=== PATIENT | male | born 1950 | race Caucasian/White ===

== ENCOUNTER 2019-11-21 17:51 | Inpatient (IN) | payer MEDICARE ==
[2019-11-21 18:31] LABS: ABS Eosinophils 0.1 10^3/ul (0-0.6); ABS Lymphocytes 1.2 10^3/ul (1.0-4.8); ABS Monocytes 0.9 10^3/ul (0-0.8); ABS Neutrophils 3.3 10^3/ul (1.5-7.7); Eosinophil % 1.7 %; Hematocrit 37 % (42-52); Hemoglobin 12.6 g/dL (14.0-18.0); Lymphocyte % 21.3 %; Mean Corpuscular HGB Conc 34 g/dL (31-36); Mean Corpuscular Hemoglobin 33 pg (27-31); Mean Corpuscular Volume 95 fL (80-94); Mean Platelet Volume 10.6 fL (7.4-10.4); Platelet Count 113 10^3/uL (150-450); Red Blood Count 3.86 10^6 /uL (4.18-5.48); Red Cell Distribution Width 14 % (10-15); White Blood Count 5.5 10^3/uL (3.5-10.8)
[2019-11-21 18:40] LABS: INR 1.14 (0.82-1.09)
[2019-11-21 18:47] LABS: ALT 47 U/L (7-52); AST 46 U/L (13-39); Albumin 4.3 g/dL (3.2-5.2); Albumin/Globulin Ratio 1.5 (1-3); Alkaline Phosphatase 59 U/L (34-104); Anion Gap 9 mmol/L (2-11); BUN/Creatinine Ratio 28.1 (8-20); Blood Urea Nitrogen 59 mg/dL (6-24); CO2 Carbon Dioxide 27 mmol/L (22-32); Chloride 100 mmol/L (101-111); EGFR African American 37.9 (>60); EGFR Non-African American 31.3 (>60); Globulin 2.9 g/dL (2-4); Glucose 142 mg/dL (70-100); Potassium 3.7 mmol/L (3.5-5.0); Sodium 136 mmol/L (135-145); Total Protein 7.2 g/dL (6.4-8.9)
[2019-11-21 18:49] LABS: Troponin I 0.01 ng/mL (<0.03)
[2019-11-21 19:52] LABS: Alcohol < 10 mg/dL (<10)
[2019-11-21 20:08] LABS: TSH (Thyroid Stimulating Horm) 2.95 mcIU/mL (0.34-5.60)
[2019-11-21 20:19] LABS: Folate 12.41 ng/mL (>3.99)
--- NOTE | 2019-11-22 01:05 | ED ---
Neurological HPI - HPI Summary HPI Summary: Patient is a 69 year-old male presenting to [facility] accompanied by friend with a chief complaint of memory issues since 11/16/2019. He reports that when he woke up six days ago, he was unable to remember mostly short-term events or items. He notes that a few days before the memory issues began, he was having difficulty with handwriting. He also has noticed himself to be hyperverbal compared to his usual. His friend reports patient having sleep disturbance and mixing up words for only a week. He saw Dr. Hammond, his PCP, on 11/21/2019, and he asked the patient to remember three words and do simple math problems, but he was only able to remember two words and couldnt solve the math. Dr. Hammond recommended the patient come here for possible metabolic encephalopathy. Past medical history significant for diabetes with neuropathy, hypercholesterolemia, hypertension, PVD, syncope, BPH, prostate cancer, fibromyalgia, colon cancer. Family history includes dementia in father, diabetes, cardiac disease. Nonsmoker , daily alcohol use, no substance use. Medications reviewed. Allergies noted. Additional friend shows up and states that the patient hasnt eaten, drank, or slept in five days. Patient is a heavy drinker but hasnt had any alcohol in two days. - History of Current Complaint Chief Complaint: EDNeurologicalDeficit Stated Complaint: CONFUSED PER PT Time Seen by Provider: 11/22/19 00:32 Hx Obtained From: Patient, Family/Instrument Panel Assembler - friends Onset/Duration: Started days ago, Still Present Onset Severity: Mild Current Severity: Moderate Pain Intensity: 0 Pain Scale Used: 0-10 Numeric Character: Confusion Aggravating: Unknown Alleviating: Nothing Associated Signs and Symptoms: Positive: Memory Loss - Allergy/Home Medications Allergies/Adverse Reactions: Allergies Allergy/AdvReac Type Severity Reaction Status Date / Time No Known Allergies Allergy Verified 11/21/19 17:57 Home Medications: Home Medications Tamsulosin CAP* [Flomax CAP*] 0.4 mg PO BEDTIME 02/12/13 [History Confirmed 09/28] metFORMIN* [Glucophage*] 850 mg PO BID 02/12/13 [History Confirmed 03/10/19] Insulin Glargine,Hum.rec.anlog [Lantus] 40 units SUBCUT QAM 11/19/15 [History Confirmed 03/10/19] Atenolol TAB* [Tenormin TAB* 50 MG] 75 mg PO QAM 02/19/19 [History Confirmed 09/28] Dulaglutide [Trulicity] 1.5 mg SQ WEEKLY 02/19/19 [History Confirmed 03/10/19] Amlodipine Besylate [Norvasc] 10 mg PO QAM 03/10/19 [History Confirmed 03/10/19] Aspirin [Aspirin Childrens 81 MG] 81 mg PO QAM 03/10/19 [History Confirmed 03/10] Atorvastatin* [Lipitor*] 20 mg PO QPM 03/10/19 [History Confirmed 03/10/19] Cholecalciferol (Vitamin D3) [Vitamin D3] 1,000 unit PO QPM 03/10/19 [History Confirmed 03/10/19] Cyanocobalamin (Vitamin B-12) [Vitamin B-12] 1,000 mcg SL QPM 03/10/19 [History Confirmed 03/10/19] Losartan/Hydrochlorothiazide [Losartan Potassium/Hydroc 100-12.5 mg] 1 tab PO QAM 03/10/19 [History Confirmed 03/10/19] PMH/Surg Hx/FS Hx/Imm Hx Endocrine/Hematology History: Reports: Hx Diabetes Denies: Hx Thyroid Disease Cardiovascular History: Reports: Hx Hypercholesterolemia - HLD, Hx Hypertension , Hx Peripheral Vascular Disease, Hx Syncope - LAST ADMISSION 2012, Other Cardiovascular Problems/Disorders - Hx HTN Denies: Hx Pacemaker/ICD Respiratory History: Denies: Hx Chronic Obstructive Pulmonary Disease (COPD) GI History: Reports: Hx Gastroesophageal Reflux Disease, Other GI Disorders - COLON CANCER 2005 History: Reports: Hx Benign Prostatic Hyperplasia, Other Problems/ Disorders - Prostate CA 2005, radiation Denies: Hx Renal Disease Musculoskeletal History: Reports: Hx Fibromyalgia - LEGS Sensory History: Reports: Hx Contacts or Glasses Denies: Hx Hearing Aid Opthamlomology History: Reports: Hx Contacts or Glasses Neurological History: Reports: Other Neuro Impairments/Disorders - DIABETIC NEUROPATHY IN FEET Psychiatric History: Reports: Hx Depression Denies: Hx Panic Disorder - Cancer History Cancer Type, Location and Year: colon 1999. prostate 2005 Hx Chemotherapy: No Hx Radiation Therapy: Yes Hx Palliative Cancer Treatment: Yes - PARTIAL COLECTOMY - Surgical History Surgical History: Yes Surgery Procedure, Year, and Place: PARTIAL COLECTOMY 03/2000. RIGHT 1ST TOE AMPUTATION 02/2013. right second toe amputation 2013 Infectious Disease History: Yes Infectious Disease History: Denies: Hx Hepatitis, Traveled Outside the [place] in Last 30 Days - Family History Known Family History: Positive: Cardiac Disease, Diabetes, Other - dementia - Social History Alcohol Use: Daily Alcohol Amount: beer Hx Substance Use: No Substance Use Type: Reports: None Hx Tobacco Use: No Smoking Status (MU): Never Smoked Tobacco Have You Smoked in the Last Year: No - Additional Comments History Additional Comments: diabetes with neuropathy, hypercholesterolemia, hypertension, PVD, syncope, BPH , prostate cancer, fibromyalgia, colon cancer Review of Systems - ROS Summary Review of Systems Summary: Home Medications Medication Instructions Recorded Confirmed Type Tamsulosin CAP* [Flomax CAP*] 0.4 mg PO BEDTIME 02/12/13 03/10/19 History metFORMIN* [Glucophage*] 850 mg PO BID 02/12/13 03/10/19 History Insulin Glargine,Hum.rec.anlog 40 units SUBCUT QAM 11/19/15 03/10/19 History [Lantus] Atenolol TAB* [Tenormin TAB* 50 MG] 75 mg PO QAM 02/19/19 03/10/19 History Dulaglutide [Trulicity] 1.5 mg SQ WEEKLY 02/19/19 03/10/19 History Amlodipine Besylate [Norvasc] 10 mg PO QAM 03/10/19 03/10/19 History Aspirin [Aspirin Childrens 81 MG] 81 mg PO QAM 03/10/19 03/10/19 History Atorvastatin* [Lipitor*] 20 mg PO QPM 03/10/19 03/10/19 History Cholecalciferol (Vitamin D3) 1,000 unit PO QPM 03/10/19 03/10/19 History [Vitamin D3] Cyanocobalamin (Vitamin B-12) 1,000 mcg SL QPM 03/10/19 03/10/19 History [Vitamin B-12] Losartan/Hydrochlorothiazide 1 tab PO QAM 03/10/19 03/10/19 History [Losartan Potassium/Hydroc 100-12.5 mg] Positive: Other - sleep disturbance, hyperverbal Positive: Other - decreased oral intake Neurological/Mental Status: Other - memory issues, mixing up words All Other Systems Reviewed And Are Negative: Yes Physical Exam - Summary Physical Exam Summary: General: Well-developed, Well-nourished elderly male. No acute distress. HEENT: Normocephalic, Atraumatic. Eyes: Conjuctiva normal, PERRL. Oropharynx: Clear, mucous membranes moist, (-) exudates. Neck: Soft, FROM, (-) lymphadenopathy, (-) thyromegaly, (-) JVD. Cardiovascular: Normal sinus rhythm, (-) murmur. Lungs: Clear to auscultation bilaterally (-) wheezes, (-) rales, (-) rhonchi. Abdomen: Soft, non-tender, non-distended, (-) organomegaly, normal bowel sounds. Back: (-) CVA tenderness Extremities: No edema. Skin: Warm, dry, (-) rash. Neuro: Alert and oriented x3, moves all extremities equally. No ataxia. No gait disturbance. No sensory deficit. Normal strength, normal sensation. Psychiatric: Pressured speech, flight of ideas, difficultly with mental status. GCS: 14 (see scale). Triage Information Reviewed: Yes Vital Signs On Initial Exam: Initial Vitals Temp Pulse Resp BP Pulse Ox 96.8 F 74 16 120/76 98 11/21/19 17:53 11/21/19 17:53 11/21/19 17:53 11/21/19 17:53 11/21/19 17:53 Vital Signs Reviewed: Yes - Edwards Coma Scale Best Eye Response: 4 - Spontaneous Best Motor Response: 6 - Obeys Commands Best Verbal Response: 4 - Confused Coma Scale Total: 14 Procedures - Sedation Patient Received Moderate/Deep Sedation with Procedure: No Diagnostics - Vital Signs Vital Signs Temp Pulse Resp BP Pulse Ox 11/22/19 00:15 69 155/74 98 11/22/19 00:14 74 96 11/21/19 20:39 97.9 F 59 18 108/58 98 11/21/19 17:53 96.8 F 74 16 120/76 98 - Laboratory Lab Results: Lab Results 11/21/19 11/21/19 11/21/19 Range/Units 18:18 18:18 18:18 WBC 5.5 (3.5-10.8) 10^3/uL RBC 3.86 L (4.18-5.48) 10^6 /uL Hgb 12.6 L (14.0-18.0) g/dL Hct 37 L (42-52) % MCV 95 H (80-94) fL MCH 33 H (27-31) pg MCHC 34 (31-36) g/dL RDW 14 (10-15) % Plt Count 113 L (150-450) 10^3/uL MPV 10.6 H (7.4-10.4) fL Neut % (Auto) 59.7 % Lymph % (Auto) 21.3 % [place] % (Auto) 16.5 % Eos % (Auto) 1.7 % Baso % (Auto) 0.8 % Absolute Neuts (auto) 3.3 (1.5-7.7) 10^3/ul Absolute Lymphs (auto) 1.2 (1.0-4.8) 10^3/ul Absolute Monos (auto) 0.9 H (0-0.8) 10^3/ul Absolute Eos (auto) 0.1 (0-0.6) 10^3/ul Absolute Basos (auto) 0.0 (0-0.2) 10^3/ul Absolute Nucleated RBC 0.0 10^3/ul Nucleated RBC % 0.0 INR (Anticoag Therapy) 1.14 H (0.82-1.09) Sodium 136 (135-145) mmol/L Potassium 3.7 (3.5-5.0) mmol/L Chloride 100 L (101-111) mmol/L Carbon Dioxide 27 (22-32) mmol/L Anion Gap 9 (2-11) mmol/L BUN 59 H (6-24) mg/dL Creatinine 2.10 H (0.67-1.17) mg/dL Est GFR ( Amer) 37.9 (>60) Est GFR (Non-Af Amer) 31.3 (>60) BUN/Creatinine Ratio 28.1 H (8-20) Glucose 142 H (70-100) mg/dL Lactic Acid (0.5-2.0) mmol/L Calcium 10.0 (8.6-10.3) mg/dL Total Bilirubin 0.90 (0.2-1.0) mg/dL AST 46 H (13-39) U/L ALT 47 (7-52) U/L Alkaline Phosphatase 59 (34-104) U/L Ammonia (16-53) mcmol/L Troponin I 0.01 (<0.03) ng/mL Total Protein 7.2 (6.4-8.9) g/dL Albumin 4.3 (3.2-5.2) g/dL Globulin 2.9 (2-4) g/dL Albumin/Globulin Ratio 1.5 (1-3) Vitamin B12 > 1450 H (180-914) pg/mL Folate 12.41 (>3.99) ng/mL TSH 2.95 (0.34-5.60) mcIU/mL Serum Alcohol < 10 (<10) mg/dL 11/21/19 11/21/19 Range/Units 18:18 18:18 WBC (3.5-10.8) 10^3/uL RBC (4.18-5.48) 10^6 /uL Hgb (14.0-18.0) g/dL Hct (42-52) % MCV (80-94) fL MCH (27-31) pg MCHC (31-36) g/dL RDW (10-15) % Plt Count (150-450) 10^3/uL MPV (7.4-10.4) fL Neut % (Auto) % Lymph % (Auto) % [place] % (Auto) % Eos % (Auto) % Baso % (Auto) % Absolute Neuts (auto) (1.5-7.7) 10^3/ul Absolute Lymphs (auto) (1.0-4.8) 10^3/ul Absolute Monos (auto) (0-0.8) 10^3/ul Absolute Eos (auto) (0-0.6) 10^3/ul Absolute Basos (auto) (0-0.2) 10^3/ul Absolute Nucleated RBC 10^3/ul Nucleated RBC % INR (Anticoag Therapy) (0.82-1.09) Sodium (135-145) mmol/L Potassium (3.5-5.0) mmol/L Chloride (101-111) mmol/L Carbon Dioxide (22-32) mmol/L Anion Gap (2-11) mmol/L BUN (6-24) mg/dL Creatinine (0.67-1.17) mg/dL Est GFR ( Amer) (>60) Est GFR (Non-Af Amer) (>60) BUN/Creatinine Ratio (8-20) Glucose (70-100) mg/dL Lactic Acid 1.6 (0.5-2.0) mmol/L Calcium (8.6-10.3) mg/dL Total Bilirubin (0.2-1.0) mg/dL AST (13-39) U/L ALT (7-52) U/L Alkaline Phosphatase (34-104) U/L Ammonia 34 (16-53) mcmol/L Troponin I (<0.03) ng/mL Total Protein (6.4-8.9) g/dL Albumin (3.2-5.2) g/dL Globulin (2-4) g/dL Albumin/Globulin Ratio (1-3) Vitamin B12 (180-914) pg/mL Folate (>3.99) ng/mL TSH (0.34-5.60) mcIU/mL Serum Alcohol (<10) mg/dL Result Diagrams: 11/21/19 18:18 11/21/19 18:18 Lab Statement: Any lab studies that have been ordered have been reviewed, and results considered in the medical decision making process. - CT Brain CT CT Interpretation Completed By: Radiologist Summary of CT Findings: Impression: No acute intracranial abnormality. No interval change. This report was reviewed by Dr. Agee. - EKG 181 Cardiac Rate: NL - 65 BPM EKG Rhythm: Sinus Rhythm Summary of EKG Findings: EKG at 1813 reveals normal sinus rhythm with rate of 65 BPM, no acute changes, no ischemic changes. This EKG was reviewed and interpreted by Dr. Agee. Course/Dx - Course Course Of Treatment: 69-year-old male presents from PCP office for evaluation. Patient states he has been confused since Sunday. Mixing up his words. Problems with memory. Was taken to his PCP office today by his friend. His friend states that he hasn't eaten or drank or slept in 5 days. Has been very confused with poor memory. Also talking rapidly and much more than normal. Friend also states that he drinks heavily every day. Has not had any alcohol in 2 days. At PCPs office today patient had trouble with Mini-Mental exam. Was unable to do serial 7 subtraction. Unable to remember 3 words. Even confused with some questions. Patient has no significant findings on physical exam. On workup he has slightly elevated creatinine. Patient unable to urinate. Bladder scan demonstrated over 900 cc in the bladder. Straight catheter was done for urine sample which demonstrated significant urinary tract infection. Started on Rocephin and IV fluids. Referred to hospitalist for admission for urinary tract infection, elevated creatinine, metabolic encephalopathy. Patient received fluids and Ceftriaxone in the ED course. - Diagnoses Provider Diagnoses: UTI (urinary tract infection), Urinary retention, Renal insufficiency, Metabolic encephalopathy - Physician Notifications Discussed Care Of Patient With: Junior Conner - hospitalist Time Discussed With Above Provider: 03:15 Instructed by Provider To: Other - I discussed the patients case with Dr. Conner, who accepts the patient for admission. Discharge ED - Sign-Out/Discharge Documenting (check all that apply): Patient Departure - Patient accepted for admission by Dr. Conner. - Discharge Plan Condition: Stable Disposition: ADMITTED TO [facility] Referrals: Gini Hanson DO [Primary Care Provider] - - Billing Disposition and Condition Condition: STABLE Disposition: Admitted to [facility] - Attestation Statements Document Initiated by Huntere: Yes Documenting Scribe: Kandace Degroot Provider For Whom Bayleeibharrison is Documenting (Include Credential): Marybeth Agee MD Scribe Attestation: IKandace, scribed for Marybeth Agee MD on 11/22/19 at 0507. Scribe Documentation Reviewed: Yes Provider Attestation: The documentation as recorded by the Kandace morocho accurately reflects the service I personally performed and the decisions made by me, Marybeth Agee MD Status of Scribe Document: Viewed
[2019-11-22 02:09] LABS: Urine Appearance Cloudy; Urine Bilirubin Negative (Negative); Urine Blood 1+ (Negative); Urine Color Yellow; Urine Glucose Negative (Negative); Urine Ketones Negative (Negative); Urine Nitrite Negative (Negative); Urine Protein Negative (Negative); Urine Specific Gravity 1.015 (1.010-1.030); Urine Urobilinogen Negative (Negative)
[2019-11-22 02:12] LABS: Urine Bacteria 1+ (Absent); Urine Red Blood Cell 1+(3-5/hpf) (Absent); Urine Squamous Epithelial Cell Present (Absent); Urine White Blood Cell 2+(11-20/hpf) (Absent)
[2019-11-22 02:25] LABS: Urine Benzodiazepine Screen None Detected (None Detect); Urine Opiates Screen None Detected (None Detect)
[2019-11-22] MEDS ORDERED: cefTRIAXone(*) 2 GM in NS 0.9% 100 ML* 100 ML IVPB ONE (03:13)
[2019-11-22] MEDS ORDERED: NS 0.9% 1000 ML** 1,000 ML IV ONE (03:19)
[2019-11-22] MEDS ORDERED: Acetaminophen TAB* 325 MG PO PRN (05:24)
[2019-11-22] MEDS ORDERED: Al Hydrox/Mg Hydrox/Simet LIQ* 30 ML UDC PO PRN (05:24)
[2019-11-22] MEDS ORDERED: Ondansetron INJ* 2 MG/ML VIAL IV PRN (05:24)
[2019-11-22] MEDS ORDERED: Dextrose 50% Syringe 50 ML* 25 GM/50 ML SYRINGE IV PUSH PRN (05:37)
[2019-11-22 06:52] LABS: ABS Eosinophils 0.1 10^3/ul (0-0.6); ABS Monocytes 0.5 10^3/ul (0-0.8); ABS Neutrophils 2.3 10^3/ul (1.5-7.7); Eosinophil % 1.8 %; Hematocrit 34 % (42-52); Hemoglobin 11.9 g/dL (14.0-18.0); Lymphocyte % 25.1 %; Mean Corpuscular HGB Conc 35 g/dL (31-36); Mean Corpuscular Hemoglobin 33 pg (27-31); Mean Corpuscular Volume 94 fL (80-94); Mean Platelet Volume 10.9 fL (7.4-10.4); Platelet Count 93 10^3/uL (150-450); Red Blood Count 3.59 10^6 /uL (4.18-5.48); Red Cell Distribution Width 14 % (10-15); White Blood Count 3.9 10^3/uL (3.5-10.8)
[2019-11-22 07:04] LABS: Calcium 9.5 mg/dL (8.6-10.3); EGFR African American 53.4 (>60); EGFR Non-African American 44.1 (>60); Magnesium 1.9 mg/dL (1.9-2.7); Potassium 3.4 mmol/L (3.5-5.0)
[2019-11-22] MEDS ORDERED: Losartan TAB* 25 MG PO SCH (09:00)
[2019-11-22] MEDS ORDERED: Hydrochlorothiazide TAB* 25 MG PO SCH (09:00)
--- NOTE | 2019-11-22 09:43 | PN ---
Subjective Date of Service: 11/22/19 Interval History: Mr. Blount reports that he is feeling better today. He feels that he has less brain fog and notes that he is better at texting (this had been a problem earlier this week). He confirms a history of prostate cancer. He confirms that he sometimes has trouble urinating but feels that it is more psychological than a result of an obstruction. He has urinated since admission. Post void residual is pending. He denies other complaint including chest pain, SOB, nausea, or abdominal pain. Objective Active Medications: Acetaminophen (Tylenol Tab*) 650 mg PO Q4H PRN Al Hydrox/Mg Hydrox/Simethicone (Maalox Plus*) 30 ml PO Q6H PRN Amlodipine Besylate (Norvasc Tab*) 10 mg PO QAM DARIANA Aspirin (Aspirin 81 Mg Chew Tab*) 81 mg PO QAM DARIANA Atenolol (Tenormin Tab*) 75 mg PO QAM DAR[facility]NA Atorvastatin Calcium (Lipitor*) 20 mg PO QPM DARIANA Cholecalciferol (Vitamin D Tab*) 1,000 units PO QPM DARIANA Dextrose (D50w Syringe 50 Ml*) 12.5 gm IV PUSH .FOR FS < 60 - SS PRN Docusate Sodium (Colace Cap*) 100 mg PO BID DARIANA Hydrochlorothiazide (Hydrodiuril Tab*) 12.5 mg PO DAILY DARIANA Ceftriaxone Sodium 1 gm/ (Sodium Chloride) 50 mls @ 100 mls/hr IVPB Q24H DARIANA Insulin Glargine (Lantus(*)) 30 units SUBCUT Q24H DARIANA Insulin Human Lispro (Humalog*) 0 units SUBCUT ACHS DARIANA; Protocol Losartan Potassium (Cozaar Tab*) 100 mg PO QAM [facility] Non-Formulary Medication (Cyanocobalamin (Vitamin B-12) [Vitamin B-12]) 1,000 mcg SL QPM DARIANA Ondansetron HCl (Zofran Inj*) 4 mg IV Q4H PRN Tamsulosin HCl (Flomax Cap*) 0.4 mg PO BEDTIME DARIANA Vital Signs: Temp Pulse Resp BP Pulse Ox 97.9 F 75 16 123/59 96 11/22/19 07:00 11/22/19 07:00 11/22/19 07:00 11/22/19 07:00 11/22/19 07:00 Oxygen Devices in Use Now: None Appearance: Male sitting up in chair in NAD Eyes: No Scleral Icterus Ears/Nose/Mouth/Throat: Mucous Membranes Moist Neck: NL Appearance and Movements; NL JVP Respiratory: Symmetrical Chest Expansion and Respiratory Effort, Clear to Auscultation Cardiovascular: NL Sounds; No Murmurs; No JVD, No Edema Abdominal: NL Sounds; No Tenderness; No Distention Extremities: No Edema Skin: No Rash or Ulcers Neurological: Alert and Oriented x 3, NL Muscle Strength and Tone Nutrition: Taking PO's Result Diagrams: 11/22/19 06:40 11/22/19 06:40 Additional Lab and Data: . Microbiology and Other Data: . Assess/Plan/Problems-Billing Assessment: Ms. Blount is a 69 yo M with a PMH of hypertension, diabetes, hyperlipidemia who was admitted on with increasing short term memory loss and loss of appetite , found to have urinary retention and SHAAN. - Patient Problems (1) SHAAN (acute kidney injury) Comment: - Found to have urinary retention on arrival, hx of prostate cancer - Post void residual pending, ? if needs fulton - Creatinine improving - Continue hydration, renal US pending - Continue ceftriaxone for mow (2) Hypertension Comment: - SBP 120s - Continue amlodipine, atenolol - Hold losartan and hctz given SHAAN (3) Diabetes Comment: - BG well controlled - Continue lantus and lispro (4) Hyperlipemia Comment: - Continue atorvastatin (5) DVT prophylaxis Comment: - Heparin SQ (6) Full code status Comment: Status and Disposition: Inpatient, anticipate discharge to home when medically stable, lives alone.
[2019-11-22] MEDS: Insulin LISPRO* 1 UNITS UNIT SUBCUT SCH ×4 (10:06→21:56)
[2019-11-22] MEDS: Docusate CAP* 100 MG PO SCH ×2 (10:16→21:30)
[2019-11-22] MEDS: Atenolol TAB* 25 MG PO SCH (10:16)
[2019-11-22] MEDS: amLODIPine TAB* 5 MG PO SCH (10:16)
[2019-11-22] MEDS: Aspirin 81 mg CHEW TAB* 81 MG TAB.CHEW PO SCH (10:16)
[2019-11-22] MEDS: Insulin GLARGINE(*) 1 UNITS UNIT SUBCUT SCH (10:16)
--- NOTE | 2019-11-22 11:57 | HP ---
HISTORY AND PHYSICAL: DATE OF ADMISSION: 11/22/19 HISTORY OF PRESENT ILLNESS: This is a 69-year-old male with past medical history significant for diabetes, hypertension, hyperlipidemia, who presented to the ED accompanied by a neighbor with chief complaint of memory issues and wanders a lot. The patient stated that he was well until 6 days ago when he woke up and was unable to remember mostly short-term events or items. He stated that a few days before the memory issues began, he has been having difficulty with handwriting. He also was noticed to be wordy compared to his usual state. The neighbor reports the patient has been having sleep disturbances and mixing up words and this he said he noticed only for 1 week. The patient went to his PCP Dr. Hammond on 11/18/19 and he asked the patient to remember 3 things but he was only able to remember 2, and solving simple math issues was also problematic. His PCP recommended he come to the ED for further evaluation, probably of metabolic in nature, so the patient states he came in to be evaluated for metabolic encephalopathy. He denied fever, nausea, vomiting , chest pain, shortness of breath. PAST MEDICAL HISTORY: Diabetes mellitus with use of insulin, diabetic neuropathy bilateral lower extremities, hypercholesterolemia, hypertension, peripheral vascular disease, BPH, history of prostate cancer, fibromyalgia, colon cancer. PAST SURGICAL HISTORY: Appendectomy, right foot amputation. The patient is a retired collections officer. He is . MEDICATIONS: 1. Flomax 0.4 mg at bedtime. 2. Metformin 850 mg p.o. b.i.d. 3. Insulin glargine 40 units subcu in the morning on record, but the patient states he takes 30 units subcu now. 4. Atenolol 75 mg p.o. q.a.m. 5. Trulicity 1.5 mg subcu weekly. 6. Amlodipine 10 mg p.o. q.a.m. 7. Baby aspirin 81 mg p.o. daily. 8. Atorvastatin 20 mg p.o. q.p.m. 9. Vitamin D3 1000 units p.o. q.p.m. 10. Vitamin B12 1000 mcg sublingual q.p.m. 11. Losartan hydrochlorothiazide 100/12.5 mg 1 tablet p.o. q.a.m. ALLERGIES: No known drug allergies. FAMILY HISTORY: Includes dementia in the father, diabetes mellitus as well in the father. Grandparents both were diabetic. SOCIAL HISTORY: The patient is a nonsmoker, daily alcohol use about 6 packs of beer daily. Denied use of illicit drugs. REVIEW OF SYSTEMS: Positive sleep disturbance, hyperverbal, decreased oral intake. All other systems reviewed were negative. PHYSICAL EXAMINATION GENERAL: Well-developed, well-nourished elderly male, in no acute distress, wanders a lot. VITAL SIGNS: Temperature 98.8, pulse 74, respiratory rate 16, BP 120/76, pulse oximetry 98%. HEENT: Normocephalic, atraumatic. Eyes: Conjunctivae normal. PERRL. Oropharynx clear. Mucous membrane moist. No exudate. NECK: Supple. Full range of motion. No lymphadenopathy. No thyromegaly. No JVD. LUNGS: Clear to auscultation bilaterally. No wheezing. No rales. No rhonchi. Good air entry. CARDIOVASCULAR: Regular rate and rhythm. S1 and S2 heard. No murmurs. ABDOMEN: Soft. Nontender, nondistended. No organomegaly. Normal bowel sounds heard in all 4 quadrants. No palpable mass. BACK: No CVA tenderness. EXTREMITIES: Trace edema. No cyanosis. Moves all 4 extremities. NEUROLOGIC: Alert and oriented x3. Moves all extremities equally. No ataxia. No gait disturbance noticed. No sensory deficit. Normal strength, normal sensation in the upper extremities. Lower extremities, mild sensory loss bilateral lower extremities secondary to neuropathy. SKIN: Warm, dry. No rashes. PSYCHIATRIC: Pressured speech. Flight of ideas. Difficulty with mental status. Tangential speech. DIAGNOSTIC STUDIES/LAB DATA: Hematologic: WBC 5.5, RBC 3.86, hemoglobin 12.6 , hematocrit 37, MCV 95, MCH 93, MCHC 34, RDW 14, platelet count 113, MPV 10.6, neutrophils 59.7, INR 1.14. Chemistry: Sodium 136, potassium 3.7, chloride 100 , bicarbonate 27, anion gap 9, BUN 59, creatinine 2.10, estimated GFR non- 31.3, glucose 142, calcium 10.0, total bilirubin 0.9, AST 46, ALT 47, alkaline phosphatase 59, troponin 0.01, total protein 7.2, albumin 4.3, globulin 2.9, vitamin B12 greater than 1450, folate 12.41, TSH 2.95, serum alcohol less than 10, lactic acid 1.6, ammonia 34. CT brain: No acute intracranial abnormality, no interval change. EKG showed normal sinus rhythm. ASSESSMENT AND PLAN: A 69-year-old male who presented to the ED accompanied by a neighbor with chief complaint of memory issues for the past 1 week, insomnia and poor oral intake. The patient sent in by PCP for evaluation for metabolic encephalopathy. The patient will be admitted to the medical floor inpatient. For the metabolic encephalopathy, reviewed medication for any medication that could cause toxic encephalopathic. The patient received 1 L of fluid, normal saline, in the ED. We will monitor. For diabetes mellitus, we will continue insulin glargine with sliding scale. Metformin will be held for now due to elevated creatinine, diabetic diet. Vitamin B12 level noted to be more than adequate. For hypertension, the patient to continue with atenolol and Norvasc with holding parameters as well as losartan and hydrochlorothiazide. Monitor blood pressure. For benign prostatic hyperplasia, the patient to continue with Flomax. For hyperlipidemia, the patient to continue with Lipitor. I think there is a combination of dementia. The patient has a family history of dementia as well. I will consider adding donepezil to his regimen. CT scan noted to be negative of any intracranial pathology. Diet: Diabetic diet. Code status: Full code. DVT prophylaxis: Heparin subcu. For acute kidney injury, avoid nephrotoxic drugs. Renal scan ordered. The patient encouraged to improve oral intake. The patient received a liter of normal saline in the ED, monitor renal function. If he does not improve with p.o. hydration, we will consider to continue IV hydration and withholding hydrochlorothiazide. We will follow up. The patient was admitted for urinary tract infection, which might also contribute to the behavioral issues noted a week ago. I will continue with ceftriaxone - Rocephin 1 g IV daily for 5 doses. Follow up urine culture and sensitivity. Fluids and electrolytes will be repeated as needed. TIME SPENT: Time spent on this admission was 60 minutes. [id number]/CPS #: [id number] JOSE MARIA
[2019-11-22] MEDS: Heparin VIAL(*) 5000 UNITS/ML VIAL (FIVE THOUSAND) SUBCUT SCH ×2 (13:07→21:29)
[2019-11-22] MEDS ORDERED: CYANOCOBALAMIN 1000 MCG SL SCH (18:00)
[2019-11-22] MEDS ORDERED: Cholecalciferol TAB* 1000 UNITS PO SCH (18:00)
[2019-11-22] MEDS ORDERED: Atorvastatin* 20 MG TAB PO SCH (18:00)
[2019-11-22] MEDS: Tamsulosin CAP* 0.4 MG PO SCH (21:30)
[2019-11-22] MEDS: Melatonin 3 MG TAB PO SCH (21:30)
[2019-11-22] MEDS: Atorvastatin* 20 MG TAB PO SCH (21:30)
[2019-11-23] MEDS: cefTRIAXone(*) 1 GM in NS 0.9% 50 ML* 50 ML IVPB SCH (05:46)
[2019-11-23] MEDS: Heparin VIAL(*) 5000 UNITS/ML VIAL (FIVE THOUSAND) SUBCUT SCH ×3 (05:47→21:01)
[2019-11-23 06:05] LABS: ABS Eosinophils 0.1 10^3/ul (0-0.6); ABS Lymphocytes 0.8 10^3/ul (1.0-4.8); ABS Monocytes 0.4 10^3/ul (0-0.8); ABS Neutrophils 1.7 10^3/ul (1.5-7.7); Eosinophil % 2.6 %; Hematocrit 35 % (42-52); Hemoglobin 11.9 g/dL (14.0-18.0); Mean Corpuscular HGB Conc 35 g/dL (31-36); Mean Corpuscular Hemoglobin 33 pg (27-31); Mean Corpuscular Volume 95 fL (80-94); Nucleated Red Blood Cells % 0.1; Platelet Count 86 10^3/uL (150-450); Red Blood Count 3.65 10^6 /uL (4.18-5.48); Red Cell Distribution Width 13 % (10-15); White Blood Count 2.9 10^3/uL (3.5-10.8)
[2019-11-23 06:24] LABS: Magnesium 1.7 mg/dL (1.9-2.7); Phosphorus 3.5 mg/dL (2.5-5.0)
[2019-11-23] MEDS: Aspirin 81 mg CHEW TAB* 81 MG TAB.CHEW PO SCH (08:00)
[2019-11-23] MEDS: Atenolol TAB* 25 MG PO SCH (08:00)
[2019-11-23] MEDS: Docusate CAP* 100 MG PO SCH ×2 (08:01→21:00)
[2019-11-23] MEDS: amLODIPine TAB* 5 MG PO SCH (08:01)
[2019-11-23] MEDS: Insulin GLARGINE(*) 1 UNITS UNIT SUBCUT SCH (08:14)
[2019-11-23] MEDS: Insulin LISPRO* 1 UNITS UNIT SUBCUT SCH ×4 (08:15→21:11)
[2019-11-23 10:31] LABS: Calcium 9.7 mg/dL (8.6-10.3); EGFR African American 70.9 (>60); EGFR Non-African American 58.6 (>60); Potassium 3.7 mmol/L (3.5-5.0)
--- NOTE | 2019-11-23 10:44 | PN ---
Subjective Date of Service: 11/23/19 Interval History: Mr. Blount reports that he feels fine physically and that his symptoms of disorientation or brain fog have improved. However he remains manic with pressured continuous speech and difficulty sleeping. He is tolerating oral intake well. He denies nausea or abdominal pain. He denies chest pain or SOB. He is urinating and has been noted to have ~200 PVR but not consistently. Objective Active Medications: Acetaminophen (Tylenol Tab*) 650 mg PO Q4H PRN Al Hydrox/Mg Hydrox/Simethicone (Maalox Plus*) 30 ml PO Q6H PRN Amlodipine Besylate (Norvasc Tab*) 10 mg PO QAM [facility] Aspirin (Aspirin 81 Mg Chew Tab*) 81 mg PO QAM [facility] Atenolol (Tenormin Tab*) 75 mg PO QAM [facility] Atorvastatin Calcium (Lipitor*) 20 mg PO 2100 [facility] Dextrose (D50w Syringe 50 Ml*) 12.5 gm IV PUSH .FOR FS < 60 - SS PRN Docusate Sodium (Colace Cap*) 100 mg PO BID [facility] Heparin Sodium (Porcine) (Heparin Vial(*)) 5,000 units SUBCUT Q8HR [facility] Ceftriaxone Sodium 1 gm/ (Sodium Chloride) 50 mls @ 100 mls/hr IVPB Q24H [facility] Insulin Glargine (Lantus(*)) 30 units SUBCUT Q24H [facility] Insulin Human Lispro (Humalog*) 0 units SUBCUT ACHS [facility]; Protocol Melatonin (Melatonin) 3 mg PO BEDTIME [facility] Ondansetron HCl (Zofran Inj*) 4 mg IV Q4H PRN Tamsulosin HCl (Flomax Cap*) 0.4 mg PO BEDTIME [facility] Oxygen Devices in Use Now: None Appearance: Male lying in bed in NAD Eyes: No Scleral Icterus Ears/Nose/Mouth/Throat: Mucous Membranes Moist Neck: Trachea Midline Respiratory: Symmetrical Chest Expansion and Respiratory Effort, Clear to Auscultation Cardiovascular: NL Sounds; No Murmurs; No JVD, No Edema Abdominal: NL Sounds; No Tenderness; No Distention Extremities: No Edema Skin: No Rash or Ulcers Neurological: Alert and Oriented x 3, NL Muscle Strength and Tone, - - Pressured speech Nutrition: Taking PO's Result Diagrams: 11/23/19 05:27 11/23/19 05:24 Additional Lab and Data: . Microbiology and Other Data: . Assess/Plan/Problems-Billing Assessment: Ms. Blount is a 69 yo M with a PMH of hypertension, diabetes, hyperlipidemia who was admitted on with increasing short term memory loss and loss of appetite , found to have urinary retention and SHAAN. - Patient Problems (1) Maria A Comment: - Suspected due to metabolic encephalopathy related to SHAAN but is not significantly improving despite resolution of SHAAN - No inciting medications, no clear evidence of infection though am continuing ceftiaxone for now, liver enzymes normal, Vit B12 is in fact high, TSH is normal - There was report from a visitor that he drinks alcohol heavily but there are not other symptoms of withdrawal evident - Psych consult pending (2) SHAAN (acute kidney injury) Comment: - Creatinine improving - Found to have urinary retention on arrival, hx of prostate cancer - Post void residual with < 200, needs follow up with urology at discharge - Renal US showed no abnormality - Continue ceftriaxone, awaiting urine culture but low suspicion for UTI given UA (3) Hypertension Comment: - SBP 120s - Continue amlodipine, atenolol - Hold losartan and hctz given SHAAN (4) Diabetes Comment: - BG well controlled - Continue lantus and lispro (5) Hyperlipemia Comment: - Continue atorvastatin (6) DVT prophylaxis Comment: - Heparin SQ (7) Full code status Comment: Status and Disposition: Inpatient, anticipate discharge to home when medically stable, however he lives alone
--- NOTE | 2019-11-23 14:56 | CONSULT ---
Identification - Patient Identification Reason for Psychiatric Consultation: Incapacitating Symptoms -: Patient is a 69 year old, M admitted on 11/22/19. - MHU Identification Employment Status: Disabled Hx Psychiatric Hospitalization: No Arrived to Hospital Via: Ambulatory History - Objective HPI: This 69 y/o male with no priorh/o treatments for mental illness currently admitted to medical for SHAAN and sudden mental status change with hypo- manic symptoms. Patient was in bed accompanied by his older sister and a niece. He presented hyperverval / pressured but but mostly logical and goal directed. He reported of some forgetfulness recently but on cognitive testing didn't appear to be severely compromized. He and his visitors linked the changes to the change of physical condition (retention of urine ). He at one point could have experience brief auditory and visual hallucinations and confusion mainly when he had difficulty urinating indicative of mild delirium. Past Medical History: Please refer to H&P Exam Appearance: Well Developed/Nourished, Healthy Appearing Hygiene: Normal Grooming: Fairly Well Kept Psychomotor Activities: Abnormal-Increased Exhibits Abnormal Movement: No Attitude and Relatedness: Well Related Eye Contact: Good - Speech Quality: Pressured Latencies: Short Quantity: Copious Patient's Decription of Mood: "Great" Observed Affect: Euphoric Affect Consistent with: Euphoria Patient's Thought Process: Coherent, Goal Directed, Circumstantial, Over Inclusive Thought Content: No Passive Wish, No Suicidal Planning, No Homicidal Ideation, No Paranoid Ideation Experiencing Hallucinations: No, Sensorium is Clear Type of Hallucinations: Visual: No, Auditory: No, Command: No Level of Consciousness: Alert Orientation: Yes Intact, Yes Orientated to Time, Yes Orientated to Place, Yes Orientated to Person Impulse Control: Intact Insight and Judgement: Fair Impression - Impression Clinical Impression: Although patient is exhibiting mild hypo-manic symptoms they mostly are due to SHAAN and insomnia not an indication of Bipolar D/O and will resolve when his medical condition resolves. Merits Inpatient Hospitalization: No Plan - Treatment Plan Continued Medication Management: Consider Medication - Start Seroquel 25mg po BID and increse to 50mg PO BID if tolerated. Try to avoid Benzos at this time. Medications: Current Medications Acetaminophen (Tylenol Tab*) 650 mg PO Q4H PRN PRN Reason: MILD PAIN or TEMP > 100.4 Al Hydrox/Mg Hydrox/Simethicone (Maalox Plus*) 30 ml PO Q6H PRN PRN Reason: INDIGESTION Amlodipine Besylate (Norvasc Tab*) 10 mg PO QAM [facility] Last Admin: 11/23/19 08:01 Dose: 10 mg Aspirin (Aspirin 81 Mg Chew Tab*) 81 mg PO QAM [facility] Last Admin: 11/23/19 08:00 Dose: 81 mg Atenolol (Tenormin Tab*) 75 mg PO QAM [facility] Last Admin: 11/23/19 08:00 Dose: 75 mg Atorvastatin Calcium (Lipitor*) 20 mg PO 2100 [facility] Last Admin: 11/22/19 21:30 Dose: 20 mg Dextrose (D50w Syringe 50 Ml*) 12.5 gm IV PUSH .FOR FS < 60 - SS PRN PRN Reason: FS < 60 Docusate Sodium (Colace Cap*) 100 mg PO BID [facility] Last Admin: 11/23/19 08:01 Dose: 100 mg Heparin Sodium (Porcine) (Heparin Vial(*)) 5,000 units SUBCUT Q8HR [facility] Last Admin: 11/23/19 05:47 Dose: 5,000 units Ceftriaxone Sodium 1 gm/ (Sodium Chloride) 50 mls @ 100 mls/hr IVPB Q24H [facility] Last Admin: 11/23/19 05:46 Dose: 100 mls/hr Insulin Glargine (Lantus(*)) 30 units SUBCUT Q24H [facility] Last Admin: 11/23/19 08:14 Dose: 30 units Insulin Human Lispro (Humalog*) 0 units SUBCUT ACHS [facility]; Protocol Last Admin: 11/23/19 12:41 Dose: Not Given Melatonin (Melatonin) 3 mg PO BEDTIME [facility] Last Admin: 11/22/19 21:30 Dose: 3 mg Ondansetron HCl (Zofran Inj*) 4 mg IV Q4H PRN PRN Reason: NAUSEA/VOMITING Tamsulosin HCl (Flomax Cap*) 0.4 mg PO BEDTIME [facility] Last Admin: 11/22/19 21:30 Dose: 0.4 mg - Discharge Plan Discharge Plan: Outpatient Follow Up Outpatient Program: [facility]
[2019-11-23] MEDS: QUEtiapine TAB* 25 MG PO SCH ×2 (16:57→21:01)
[2019-11-23] MEDS: Tamsulosin CAP* 0.4 MG PO SCH (21:00)
[2019-11-23] MEDS: Melatonin 3 MG TAB PO SCH (21:01)
[2019-11-23] MEDS: Atorvastatin* 20 MG TAB PO SCH (21:01)
[2019-11-24] MEDS: cefTRIAXone(*) 1 GM in NS 0.9% 50 ML* 50 ML IVPB SCH (03:38)
[2019-11-24] MEDS: Heparin VIAL(*) 5000 UNITS/ML VIAL (FIVE THOUSAND) SUBCUT SCH ×3 (05:55→20:59)
[2019-11-24] MEDS: Insulin LISPRO* 1 UNITS UNIT SUBCUT SCH ×4 (08:20→20:50)
[2019-11-24] MEDS: QUEtiapine TAB* 25 MG PO SCH (08:23)
[2019-11-24] MEDS: Aspirin 81 mg CHEW TAB* 81 MG TAB.CHEW PO SCH (08:23)
[2019-11-24] MEDS: Docusate CAP* 100 MG PO SCH ×2 (08:23→20:50)
[2019-11-24] MEDS: Atenolol TAB* 25 MG PO SCH (08:24)
[2019-11-24] MEDS: amLODIPine TAB* 5 MG PO SCH (08:24)
[2019-11-24] MEDS: Insulin GLARGINE(*) 1 UNITS UNIT SUBCUT SCH (08:25)
--- NOTE | 2019-11-24 10:49 | PN ---
Subjective Date of Service: 11/24/19 Interval History: Mr. Blount states that he feels about the same. His speech remains pressured but appropriate. Objective Active Medications: Acetaminophen (Tylenol Tab*) 650 mg PO Q4H PRN Al Hydrox/Mg Hydrox/Simethicone (Maalox Plus*) 30 ml PO Q6H PRN Amlodipine Besylate (Norvasc Tab*) 10 mg PO QAM [facility] Aspirin (Aspirin 81 Mg Chew Tab*) 81 mg PO QAM [facility] Atenolol (Tenormin Tab*) 75 mg PO QAM [facility] Atorvastatin Calcium (Lipitor*) 20 mg PO 2100 [facility] Dextrose (D50w Syringe 50 Ml*) 12.5 gm IV PUSH .FOR FS < 60 - SS PRN Docusate Sodium (Colace Cap*) 100 mg PO BID [facility] Heparin Sodium (Porcine) (Heparin Vial(*)) 5,000 units SUBCUT Q8HR [facility] Ceftriaxone Sodium 1 gm/ (Sodium Chloride) 50 mls @ 100 mls/hr IVPB Q24H [facility] Insulin Glargine (Lantus(*)) 30 units SUBCUT Q24H [facility] Insulin Human Lispro (Humalog*) 0 units SUBCUT ACHS [facility]; Protocol Melatonin (Melatonin) 3 mg PO BEDTIME [facility] Ondansetron HCl (Zofran Inj*) 4 mg IV Q4H PRN Quetiapine Fumarate (Seroquel Tab*) 25 mg PO BID [facility] Tamsulosin HCl (Flomax Cap*) 0.4 mg PO BEDTIME [facility] Vital Signs: Temp Pulse Resp BP Pulse Ox 97.5 F 66 18 114/59 97 11/24/19 09:57 11/24/19 09:57 11/24/19 09:57 11/24/19 09:57 11/24/19 09:57 Oxygen Devices in Use Now: None Appearance: Male sitting up in bed in NAD Eyes: No Scleral Icterus Ears/Nose/Mouth/Throat: Mucous Membranes Moist Neck: Trachea Midline Respiratory: Symmetrical Chest Expansion and Respiratory Effort, Clear to Auscultation Cardiovascular: NL Sounds; No Murmurs; No JVD, No Edema Abdominal: NL Sounds; No Tenderness; No Distention Extremities: No Edema Skin: No Rash or Ulcers Neurological: Alert and Oriented x 3, NL Muscle Strength and Tone Nutrition: Taking PO's Result Diagrams: 11/25/19 11:29 03/17/20 11:29 Additional Lab and Data: . Microbiology and Other Data: . Assess/Plan/Problems-Billing Assessment: Ms. Blount is a 69 yo M with a PMH of hypertension, diabetes, hyperlipidemia who was admitted on with increasing short term memory loss and loss of appetite , found to have urinary retention and SHAAN with new onset maria a. - Patient Problems (1) Maria A Comment: - Minimal improvement - MRI brain pending - Suspected due to metabolic encephalopathy related to SHAAN but is not significantly improving despite resolution of SHAAN. Psychiatry thinks may be related to history of alcohol abuse and recent discontinuation, no other sign of withdrawal - No inciting medications, no clear evidence of infection as urine culture is negative, liver enzymes normal, Vit B12 is in fact high, TSH is normal - Psych consult appreciated, depakote and seroquel will be started (2) SHAAN (acute kidney injury) Comment: - Resolved - Found to have urinary retention on arrival, hx of prostate cancer - Post void residual with < 200, needs follow up with urology at discharge - Renal US showed no abnormality - Urine culture negative, ceftriaxone stopped (3) Hypertension Comment: - SBP 120s - Continue amlodipine, atenolol - Hold losartan and hctz given SHAAN until follow up with PCP (4) Diabetes Comment: - BG well controlled - Continue lantus and lispro (5) Hyperlipemia Comment: - Continue atorvastatin (6) DVT prophylaxis Comment: - Heparin SQ (7) Full code status Comment: Status and Disposition: Inpatient, anticipate discharge to home when medically stable, however he lives alone and we are working to get more support from neighbors or family.
--- NOTE | 2019-11-24 15:20 | PN ---
Subjective - Subjective Date of Service: 11/24/19 Service Type: [id number] Hosp care 15 min low complexity Subjective: Meek is seen for psychiatric follow up on the consult service. The patient is friendly and appears eager to tell me the circumstances of his hospitalization with minimal prompting from me. "You see, it was Sunday...not this Sunday but the previous Sunday...and all of a sudden, something just clicked, like in my head. A click. All of a sudden I didn't want to drink anymore, didn't want to sleep anymore and my thoughts...my thoughts are so fast! 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 He remains overtalkative, pressured, distracted, grandiose and euphoric throughout the conversation. Mr. Morales endorses an 18 beer/day alcohol habit, with last alcohol consumed on approximately November 14. Staff notes indicate that he is cooperative with care, hyperverbal but not showing physiologic signs of alcohol withdrawal. Mr. Morales denies SI or HI. Assessment - Assessment Clinical Impression: Although patient is exhibiting mild hypo-manic symptoms they mostly are due to SHAAN and insomnia not an indication of Bipolar D/O and will resolve when his medical condition resolves. Plan - Plan Treatment Plan: Name: MEEK MORALES Birthdate: 1950 [id number] Medications: Current Medications Acetaminophen (Tylenol Tab*) 650 mg PO Q4H PRN PRN Reason: MILD PAIN or TEMP > 100.4 Al Hydrox/Mg Hydrox/Simethicone (Maalox Plus*) 30 ml PO Q6H PRN PRN Reason: INDIGESTION Amlodipine Besylate ([facility]vasc Tab*) [facility] [place] Last Admin: 11/24/19 08:24 Dose: 10 mg Aspirin (Aspirin 81 Mg Chew Tab*) 81 mg PO QAM [facility] Last Admin: 11/24/19 08:23 Dose: 81 mg Atenolol (Tenormin Tab*) 75 mg PO QAM [facility] Last Admin: 11/24/19 08:24 Dose: 75 mg Atorvastatin Calcium (Lipitor*) 20 mg PO 2100 [facility] Last Admin: 11/23/19 21:01 Dose: 20 mg Dextrose (D50w Syringe 50 Ml*) 12.5 gm IV PUSH .FOR FS < 60 - SS PRN PRN Reason: FS < 60 Divalproex Sodium (Depakote Dr Tab(*)) 250 mg PO BID [facility] Docusate Sodium (Colace Cap*) 100 mg PO BID [facility] Last Admin: 11/24/19 08:23 Dose: 100 mg Heparin Sodium (Porcine) (Heparin Vial(*)) 5,000 units SUBCUT Q8HR [facility] Last Admin: 11/24/19 05:55 Dose: 5,000 units Insulin Glargine (Lantus(*)) 30 units SUBCUT Q24H [facility] Last Admin: 11/24/19 08:25 Dose: 30 units Insulin Human Lispro (Humalog*) 0 units SUBCUT ACHS [facility]; Protocol Last Admin: 11/24/19 13:01 Dose: Not Given Melatonin (Melatonin) 3 mg PO BEDTIME [facility] Last Admin: 11/23/19 21:01 Dose: 3 mg Ondansetron HCl (Zofran Inj*) 4 mg IV Q4H PRN PRN Reason: NAUSEA/VOMITING Quetiapine Fumarate (Seroquel Tab*) 100 mg PO BEDTIME [facility] Tamsulosin HCl (Flomax Cap*) 0.4 mg PO BEDTIME [facility] Last Admin: 11/23/19 21:00 Dose: 0.4 mg
--- NOTE | 2019-11-24 15:26 | CONSULT ---
Identification - Patient Identification Reason for Psychiatric Consultation: Incapacitating Symptoms -: Patient is a 69 year old, M admitted on 11/22/19. - MHU Identification Hx Psychiatric Hospitalization: No History - Objective HPI: Meek is seen for psychiatric follow up on the consult service. The patient is friendly and appears eager to tell me the circumstances of his hospitalization with minimal prompting from me. "You see, it was Sunday...not this Sunday but the previous Sunday...and all of a sudden, something just clicked, like in my head. A click. All of a sudden I didn't want to drink anymore, didn't want to sleep anymore and my thoughts...my thoughts are so fast! 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 He remains overtalkative, pressured, distracted, grandiose and euphoric throughout the conversation. Mr. Morales endorses an 18 beer/day alcohol habit, with last alcohol consumed on approximately November 14. Staff notes indicate that he is cooperative with care, hyperverbal but not showing physiologic signs of alcohol withdrawal. He seems to be tolerating quetiapine well so far with only mild sedation with first dose. Mr. Morales denies SI or HI. He is coherent with no evidence of psychosis. Exam Appearance: Well Developed/Nourished, Healthy Appearing Hygiene: Normal Grooming: Fairly Well Kept Psychomotor Activities: Abnormal-Increased Exhibits Abnormal Movement: No Attitude and Relatedness: Well Related Eye Contact: Good - Speech Quality: Pressured Latencies: Short Quantity: Copious Patient's Decription of Mood: "Great" Observed Affect: Euphoric Affect Consistent with: Euphoria Patient's Thought Process: Coherent, Goal Directed, Circumstantial, Over Inclusive Thought Content: No Passive Wish, No Suicidal Planning, No Homicidal Ideation, No Paranoid Ideation Experiencing Hallucinations: No, Sensorium is Clear Type of Hallucinations: Visual: No, Auditory: No, Command: No Level of Consciousness: Alert Orientation: Yes Intact, Yes Orientated to Time, Yes Orientated to Place, Yes Orientated to Person Impulse Control: Intact Insight and Judgement: Fair Impression - Impression Clinical Impression: 69 y.o. , white male with a history of chronic alcoholism admitted to the Hospitalist service secondary to fall presents with symptoms of diaz. Merits Inpatient Hospitalization: No Plan - Treatment Plan Treatment Plan: Name: MEEK MORALES Birthdate: 1950 [id number] The patient meets criteria for a manic episode, likely related to discontinuation of alcohol abuse. Will change quetiapine to 100mg PO qhs and start a trial of Depakote 250mg PO BID. It's uncertain whether the patient requires BSU admission at this time as he is neither homicidal nor suicidal and does not appear disorganized or psychotic. Psychiatry will reassess tomorrow () after he hopefully gets some sleep. Continued Medication Management: Start Medication Medications: Current Medications Acetaminophen (Tylenol Tab*) 650 mg PO Q4H PRN PRN Reason: MILD PAIN or TEMP > 100.4 Al Hydrox/Mg Hydrox/Simethicone (Maalox Plus*) 30 ml PO Q6H PRN PRN Reason: INDIGESTION Amlodipine Besylate (Norvasc Tab*) 10 mg PO QAM [facility] Last Admin: 11/24/19 08:24 Dose: 10 mg Aspirin (Aspirin 81 Mg Chew Tab*) 81 mg PO QAM [facility] Last Admin: 11/24/19 08:23 Dose: 81 mg Atenolol (Tenormin Tab*) 75 mg PO QAM [facility] Last Admin: 11/24/19 08:24 Dose: 75 mg Atorvastatin Calcium (Lipitor*) 20 mg PO 2100 [facility] Last Admin: 11/23/19 21:01 Dose: 20 mg Dextrose (D50w Syringe 50 Ml*) 12.5 gm IV PUSH .FOR FS < 60 - SS PRN PRN Reason: FS < 60 Divalproex Sodium (Depakote Dr Tab(*)) 250 mg PO BID [facility] Docusate Sodium (Colace Cap*) 100 mg PO BID [facility] Last Admin: 11/24/19 08:23 Dose: 100 mg Heparin Sodium (Porcine) (Heparin Vial(*)) 5,000 units SUBCUT Q8HR [facility] Last Admin: 11/24/19 05:55 Dose: 5,000 units Insulin Glargine (Lantus(*)) 30 units SUBCUT Q24H [facility] Last Admin: 11/24/19 08:25 Dose: 30 units Insulin Human Lispro (Humalog*) 0 units SUBCUT [facility]; Protocol Last Admin: 11/24/19 13:01 Dose: Not Given Melatonin (Melatonin) 3 mg PO BEDTIME [facility] Last Admin: 11/23/19 21:01 Dose: 3 mg Ondansetron HCl (Zofran Inj*) 4 mg IV Q4H PRN PRN Reason: NAUSEA/VOMITING Quetiapine Fumarate (Seroquel Tab*) 100 mg PO BEDTIME [facility] Tamsulosin HCl (Flomax Cap*) 0.4 mg PO BEDTIME [facility] Last Admin: 11/23/19 21:00 Dose: 0.4 mg
[2019-11-24] MEDS: Melatonin 3 MG TAB PO SCH (20:50)
[2019-11-24] MEDS: Divalproex DR TAB(*) 250 MG PO SCH (20:50)
[2019-11-24] MEDS: Atorvastatin* 20 MG TAB PO SCH (20:50)
[2019-11-24] MEDS: Tamsulosin CAP* 0.4 MG PO SCH (20:50)
[2019-11-24] MEDS ORDERED: QUEtiapine TAB* 100 MG PO SCH (21:00)
[2019-11-25] MEDS: Heparin VIAL(*) 5000 UNITS/ML VIAL (FIVE THOUSAND) SUBCUT SCH ×2 (06:02→14:10)
[2019-11-25] MEDS: Docusate CAP* 100 MG PO SCH (09:32)
[2019-11-25] MEDS: Divalproex DR TAB(*) 250 MG PO SCH (09:32)
[2019-11-25] MEDS: Aspirin 81 mg CHEW TAB* 81 MG TAB.CHEW PO SCH (09:32)
[2019-11-25] MEDS: Atenolol TAB* 25 MG PO SCH (09:32)
[2019-11-25] MEDS: amLODIPine TAB* 5 MG PO SCH (09:32)
[2019-11-25] MEDS: Insulin GLARGINE(*) 1 UNITS UNIT SUBCUT SCH ×2 (09:33→09:37)
[2019-11-25] MEDS: Insulin LISPRO* 1 UNITS UNIT SUBCUT SCH ×3 (10:04→16:30)
[2019-11-25 11:38] LABS: ABS Eosinophils 0.1 10^3/ul (0-0.6); ABS Monocytes 0.3 10^3/ul (0-0.8); ABS Neutrophils 1.9 10^3/ul (1.5-7.7); Eosinophil % 2.7 %; Hematocrit 35 % (42-52); Hemoglobin 12.4 g/dL (14.0-18.0); Lymphocyte % 29.2 %; Mean Corpuscular HGB Conc 35 g/dL (31-36); Mean Corpuscular Hemoglobin 34 pg (27-31); Mean Corpuscular Volume 95 fL (80-94); Mean Platelet Volume 10.3 fL (7.4-10.4); Platelet Count 97 10^3/uL (150-450); Red Blood Count 3.71 10^6 /uL (4.18-5.48); Red Cell Distribution Width 13 % (10-15); White Blood Count 3.3 10^3/uL (3.5-10.8)
[2019-11-25 12:06] LABS: BUN/Creatinine Ratio 20.2 (8-20); C Reactive Protein 1.88 mg/L (<8.01); EGFR African American 80.7 (>60); EGFR Non-African American 66.7 (>60); Potassium 3.9 mmol/L (3.5-5.0)
--- NOTE | 2019-11-25 12:52 | PN ---
Subjective Date of Service: 11/25/19 Interval History: Mr. Blount reports that he did sleep better last night. He confirms that his speech continues to be pressured but he does feel calmer and more in control. He denies any other complaint and is eager for discharge to home. Have discussed with all of patient's support systems (dominguez Toro and Dr Hammond, family) and they are in agreement that he is safe for discharge and that they will be checking on him regularly and providing more support as needed. Objective Active Medications: Acetaminophen (Tylenol Tab*) 650 mg PO Q4H PRN Al Hydrox/Mg Hydrox/Simethicone (Maalox Plus*) 30 ml PO Q6H PRN Amlodipine Besylate (Norvasc Tab*) 10 mg PO QAM [facility] Aspirin (Aspirin 81 Mg Chew Tab*) 81 mg PO QAM [facility] Atenolol (Tenormin Tab*) 75 mg PO QAM [facility] Atorvastatin Calcium (Lipitor*) 20 mg PO 2100 [facility] Dextrose (D50w Syringe 50 Ml*) 12.5 gm IV PUSH .FOR FS < 60 - SS PRN Divalproex Sodium (Depakote Dr Tab(*)) 250 mg PO BID [facility] Docusate Sodium (Colace Cap*) 100 mg PO BID [facility] Heparin Sodium (Porcine) (Heparin Vial(*)) 5,000 units SUBCUT Q8HR [facility] Insulin Glargine (Lantus(*)) 30 units SUBCUT Q24H [facility] Insulin Human Lispro (Humalog*) 0 units SUBCUT ACHS [facility]; Protocol Melatonin (Melatonin) 3 mg PO BEDTIME [facility] Ondansetron HCl (Zofran Inj*) 4 mg IV Q4H PRN Quetiapine Fumarate (Seroquel Tab*) 100 mg PO BEDTIME [facility] Tamsulosin HCl (Flomax Cap*) 0.4 mg PO BEDTIME [facility] Vital Signs: Temp Pulse Resp BP Pulse Ox 97.4 F 65 18 136/66 100 11/25/19 11:15 11/25/19 11:15 11/25/19 11:15 11/25/19 11:15 11/25/19 11:15 Oxygen Devices in Use Now: None Appearance: Male sitting up in NAD Eyes: No Scleral Icterus Ears/Nose/Mouth/Throat: Mucous Membranes Moist Neck: Trachea Midline Respiratory: Symmetrical Chest Expansion and Respiratory Effort, Clear to Auscultation Cardiovascular: NL Sounds; No Murmurs; No JVD, No Edema Abdominal: NL Sounds; No Tenderness; No Distention Extremities: No Edema Skin: No Rash or Ulcers Neurological: Alert and Oriented x 3, NL Muscle Strength and Tone, - - speech pressured but appropriate Result Diagrams: 11/25/19 11:29 11/25/19 11:29 Additional Lab and Data: . Microbiology and Other Data: . Assess/Plan/Problems-Billing Assessment: Ms. Blount is a 69 yo M with a PMH of hypertension, diabetes, hyperlipidemia who was admitted on with increasing short term memory loss and loss of appetite , found to have urinary retention and SHAAN. - Patient Problems (1) Maria A Comment: - Slight improvement on new medications - MRI brain negative, CT brain was negative - Suspected due to metabolic encephalopathy related to SHAAN but is not significantly improving despite resolution of SHAAN. Psychiatry thinks may be related to history of alcohol abuse and recent discontinuation, no other sign of withdrawal - No inciting medications, no clear evidence of infection as urine culture is negative, liver enzymes normal, Vit B12 is in fact high, TSH is normal - Psych consult appreciated, depakote and seroquel will be continued (2) SHAAN (acute kidney injury) Comment: - Resolved - Found to have urinary retention on arrival, hx of prostate cancer - Post void residual with < 200, needs follow up with urology at discharge - Renal US showed no abnormality - Urine culture negative, ceftriaxone stopped (3) Hypertension Comment: - SBP 120s - Continue amlodipine, atenolol - Hold losartan and hctz given SHAAN until follow up with PCP (4) Diabetes Comment: - BG well controlled - Continue lantus and lispro (5) Hyperlipemia Comment: - Continue atorvastatin (6) Difficulty swallowing pills Comment: - Patient reports intermittent feeling that pills become caught in throat - Swallowing easily other ocampo - PCP aware and will follow up (7) DVT prophylaxis Comment: - Heparin SQ (8) Full code status Comment: Status and Disposition: Inpatient, discharge to home
--- NOTE | 2019-11-25 14:17 | CONSULT ---
Identification - Patient Identification Reason for Psychiatric Consultation: Incapacitating Symptoms -: Patient is a 69 year old, M admitted on 11/22/19. - MHU Identification Employment Status: Disabled Hx Psychiatric Hospitalization: No History - Objective HPI: Meek is seen for psychiatric follow up this afternoon. He immediately recognizes this policy writer sales from our encounter yesterday, telling the holistic nutritionist who is taking his tray "Oh look, it's the psychiatrist. I like all of you so much, and the food is so good. I would move in if you all would let me. " He remains hyperverbal and grandiose, telling the nutrition staff member that he could reconfigure their routines so that dining services could become more efficient at the hospital. Mr. Blount is still aware that his speech and behavior are irregularly elevated. "I'm usually a etienne who doesn't say much. Now don't get me wrong, I'll speak when I need to speak. 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 "Yes, it's Cortez and Tonny. Tonny is actually a girl...her middle name is Tish." Meek is agreeable with continuing to abstain from alcohol and continuing to take the medications started here in the hospital, particularly for diaz. He continues to deny SI or HI and I am informed by his attending, Henna Connolly, that friends have removed a firearm from his home [place] in [place]. The patient agrees to f/ u with his PCP, Dr. Hammond. There remains no evidence of paranoia or psychotic functioning. Exam Appearance: Well Developed/Nourished, Healthy Appearing Hygiene: Normal Grooming: Fairly Well Kept Psychomotor Activities: Abnormal-Increased Exhibits Abnormal Movement: No Attitude and Relatedness: Well Related Eye Contact: Good - Speech Quality: Pressured Latencies: Short Quantity: Copious Patient's Decription of Mood: "Great" Observed Affect: Euphoric Affect Consistent with: Euphoria Patient's Thought Process: Coherent, Goal Directed, Circumstantial, Over Inclusive Thought Content: No Passive Wish, No Suicidal Planning, No Homicidal Ideation, No Paranoid Ideation Experiencing Hallucinations: No, Sensorium is Clear Type of Hallucinations: Visual: No, Auditory: No, Command: No Level of Consciousness: Alert Orientation: Yes Intact, Yes Orientated to Time, Yes Orientated to Place, Yes Orientated to Person Impulse Control: Intact Insight and Judgement: Fair Impression - Impression Clinical Impression: 69 y.o. , white male with a history of alcohol abuse admitted for weakness and falls presents with symptoms of diaz. Inpatient DSM-V Dx: F30.9 Merits Inpatient Hospitalization: No Plan - Treatment Plan Treatment Plan: The patient is tolerating initiation of quetiapine 100mg PO qhs and Depakote 250mg PO BID. He is slightly less manic than yesterday. The patient has supports in place to continue his medications and receive assistance in the home setting. Psychiatry recommends continuation of quetiapine and Depakote therapies at current doses. He can f/u with his PCP. Psychiatry will continue to follow for the duration of his hospitalization. He is psychiatrically cleared for discharge as he has an acceptable safety profile for outpatient management. Continued Medication Management: Start Medication Medications: Current Medications Acetaminophen (Tylenol Tab*) 650 mg PO Q4H PRN PRN Reason: MILD PAIN or TEMP > 100.4 Al Hydrox/Mg Hydrox/Simethicone (Maalox Plus*) 30 ml PO Q6H PRN PRN Reason: INDIGESTION Amlodipine Besylate ([facility]vasc Tab*) [facility] Admin: 11/25/19 09:32 Dose: 10 mg Aspirin (Aspirin 81 Mg Chew Tab*) 81 mg PO [facility] Last Admin: 11/25/19 09:32 Dose: 81 mg Atenolol (Tenormin Tab*) 75 mg PO QAM [facility] Last Admin: 11/25/19 09:32 Dose: 75 mg Atorvastatin Calcium (Lipitor*) 20 mg PO 2100 [facility] Last Admin: 11/24/19 20:50 Dose: 20 mg Dextrose (D50w Syringe 50 Ml*) 12.5 gm IV PUSH .FOR FS < 60 - SS PRN PRN Reason: FS < 60 Divalproex Sodium (Depakote Dr Tab(*)) 250 mg PO BID [facility] Last Admin: 11/25/19 09:32 Dose: 250 mg Docusate Sodium (Colace Cap*) 100 mg PO BID [facility] Last Admin: 11/25/19 09:32 Dose: 100 mg Heparin Sodium (Porcine) (Heparin Vial(*)) 5,000 units SUBCUT Q8HR [facility] Last Admin: 11/25/19 06:02 Dose: 5,000 units Insulin Glargine (Lantus(*)) 30 units SUBCUT Q24H [facility] Last Admin: 11/25/19 09:37 Dose: 30 units Insulin Human Lispro (Humalog*) [address] [facility]; Protocol Last Admin: 11/25/19 11:19 Dose: 2 units Melatonin (Melatonin) 3 mg PO BEDTIME [facility] Last Admin: 11/24/19 20:50 Dose: 3 mg Ondansetron HCl (Zofran Inj*) 4 mg IV Q4H PRN PRN Reason: NAUSEA/VOMITING Quetiapine Fumarate (Seroquel Tab*) 100 mg PO BEDTIME [facility] Last Admin: 11/24/19 20:50 Dose: 100 mg Tamsulosin HCl (Flomax Cap*) 0.4 mg PO BEDTIME [facility] Last Admin: 11/24/19 20:50 Dose: 0.4 mg - Discharge Plan Discharge Plan: Outpatient Follow Up
--- NOTE | 2019-11-25 14:40 | DS ---
AMENDED REPORT NOW INCLUDES DESIGNATED COSIGNER - ESIGNED BEFORE ADJUSTMENTS CC: Dr. Hanson * HOSPITAL MEDICINE DISCHARGE SUMMARY: DATE OF ADMISSION: 11/22/19 DATE OF DISCHARGE: 11/25/19 PRIMARY CARE PHYSICIAN: Dr. Hanson. ATTENDING PHYSICIAN: Dr. Lisa Graham * (dictation provided by Henna Connolly NP ). PRIMARY DIAGNOSES: 1. Acute kidney injury, now resolved. 2. New onset diaz. SECONDARY DIAGNOSES: 1. History of prostate cancer. 2. Hypertension. 3. Type 2 diabetes with insulin dependence. 4. Diabetic neuropathy. 5. Hypercholesterolemia. 6. Peripheral vascular disease. 7. Fibromyalgia. 8. Colon cancer. MEDICATIONS AT THE TIME OF DISCHARGE: 1. Metformin 850 mg p.o. b.i.d. 2. Tamsulosin 0.4 mg p.o. at bedtime. 3. Lantus insulin 30 units subcutaneously q.a.m. 4. Trulicity 1.5 mg subcutaneously weekly. 5. Vitamin D3 1000 units p.o. q.p.m. 6. Atorvastatin 20 mg p.o. q.p.m. 7. Atenolol 75 mg p.o. q.a.m. 8. Aspirin 81 mg p.o. q.a.m. 9. Amlodipine 10 mg q.a.m. 10. Quetiapine 100 mg p.o. at bedtime. 11. Divalproex DR 250 mg p.o. b.i.d. The patient will be stopping B12 due to the fact that his B12 level was greater than 1450. He is also stopping losartan/hydrochlorothiazide until followup with his primary care physician due to well-controlled blood pressure off the medications and acute kidney injury. HOSPITAL COURSE: Mr. Blount is a 69-year-old male who was admitted to the hospital on 11/22/19 with concern for change in mental status and acute kidney injury. Please see the dictated H and P from Dr. Conner for complete details. In brief, the patient stated that approximately 1 week prior to admission he woke up with a sudden onset of brain fog, difficulty writing, insomnia, and loss of appetite. This continued for several days until he saw a friend who also happens to be a physician. The physician evaluated him and recommended strongly to come to the emergency room for evaluation. In the emergency room, Mr. Blount was found to have mild urinary retention. The patient states that this is very common for him and often due to anxiety. Regardless, we did straight catheterization. We checked urinalysis and culture which were negative. He had a renal ultrasound and he had no sonographically apparent acute abnormality of the kidneys. He did have an acute kidney injury on arrival. I think this could have been secondary somewhat to retention but more likely due to poor intake and continuation of losartan/hydrochlorothiazide at home. The patient's creatinine on arrival was 2.10 and is 1.09 today. He had post void residual bladder scans during the hospitalization which were less than 200mls During the hospitalization, Mr. Blount's blood pressure has been well controlled off losartan/hydrochlorothiazide due to his acute kidney injury, and I am recommending that he continue off of that at discharge until he follows up with his primary care physician. Despite treatment for a component of metabolic encephalopathy, Mr. Blount continued to evidence altered mental status. He is evidencing a new onset of diaz with pressured speech. We have investigated potential causes and there is no etiology has been determined with certainty. He has no evidence of infection. His vitamin B12 level is actually high. He has had a brain MRI which was normal. He has had no medication changes that could be an inciting factor. His liver enzymes are normal. His TSH is normal. He has been seen by our psychiatrist and started on medications for this, which have been somewhat helpful and at least allowing him to sleep at night. He is currently on Depakote b.i.d. with Seroquel at night and tolerating well. Psychiatry has some suspicion that he may have had underlying bipolar disorder that had been masked my alcohol use. He had no evidence of alcohol withdrawal during the hospitalization but significant alcohol use was reported by a visitor. Mr. Blount has complained of some difficulty very intermittently with swallowing pills and states that he feels as if they become hung up in his throat. He is able to swallow well and is tolerating oral intake. Our recommendation is that he follow up for this with his primary care physician for further evaluation. Mr. Blount is medically stable for discharge to home. Certainly he is not back to his baseline self and we have made every effort to make sure that all of his support systems are aware and are engaged. The patient's neighbors Suresh and Dr. Hammond will be checking on the patient. In addition, the patient' s family who lives about 4 hours away, including a sister and niece, are also aware and will be supporting him as well. There was concern that perhaps the patient had a gun in the home. Mr. Blount has confirmed this and this gun has been removed by his friend Suresh prior to discharge today. Mr. Blount is medically stable for discharge to home. DISPOSITION: Home. DIET: Low carb, heart healthy. ACTIVITY: As tolerated. FOLLOWUP: Please follow up with Dr. Hanson, the primary care physician, on . An appointment has already been scheduled. TIME SPENT: Approximately 60 minutes were spent on the discharge of this patient, more than half that time was spent with the patient at the bedside reviewing the events leading up to this hospitalization, performing the physical examination, and reviewing the plan of care. HENNA CONNOLLY NP [id number]/CPS #: [id number] JOSE MARIA
[2019-11-25 16:38] VITALS: BP 141/79
== END 2019-11-25 19:30 | disposition home or self-care (01) | DRG 71 ==
LOC: ED 17:51 → MED 11-22 05:24
PROVIDERS: ADMIT Family Medicine; ATTEND Internal Medicine
DX: G93.41 Metabolic encephalopathy (principal); C18.9 Malignant neoplasm of colon, unspecified; N17.9 Acute kidney failure, unspecified; F30.11 Manic episode without psychotic symptoms, mild; G47.9 Sleep disorder, unspecified; E78.00 Pure hypercholesterolemia, unspecified; I11.9 Hypertensive heart disease without heart failure; D69.6 Thrombocytopenia, unspecified; E11.51 Type 2 diabetes mellitus with diabetic peripheral angiopathy without gangrene; N40.1 Benign prostatic hyperplasia with lower urinary tract symptoms; C61 Malignant neoplasm of prostate; M79.7 Fibromyalgia; R55 Syncope and collapse; E11.42 Type 2 diabetes mellitus with diabetic polyneuropathy; I35.0 Nonrheumatic aortic (valve) stenosis; E78.5 Hyperlipidemia, unspecified; G47.00 Insomnia, unspecified; F10.10 Alcohol abuse, uncomplicated; Y90.0 Blood alcohol level of less than 20 mg/100 ml; Z85.46 Personal history of malignant neoplasm of prostate; Z79.84 Long term (current) use of oral hypoglycemic drugs; Z79.82 Long term (current) use of aspirin; Z79.899 Other long term (current) drug therapy; Z83.3 Family history of diabetes mellitus
CPT/HCPCS: 36415; 70450; 70551; 76775; 80048; 80053; 80307; 80320; 81003; 81015; 82140; 82607; 82746; 83605; 83735; 84100; 84443; 84484; 85025; 85610; 86140; 87086; 87641; 93005; 96361; 96365; 99284; A9270-GY; G0480; J0696; J1644